=== PATIENT | male | born 1995 | race Caucasian/White ===

== ENCOUNTER 2019-08-08 09:34 | Emergency (ER) | payer MEDICAID, OTHER ==
[~2019-08-08] VITALS: Ht 162.6 cm; Wt 82.0 kg
[2019-08-08] MEDS ORDERED: ONDANSETRON HCL 4MG/2ML INJ IV STA (10:41)
[2019-08-08] MEDS ORDERED: KETOROLAC 30MG/ML VIAL IV STA (10:41)
[2019-08-08] MEDS ORDERED: SODIUM CHLORIDE 0.9% 1,000 ML IV ONE (10:41)
[2019-08-08 12:01] LABS: *AMPHETAMINES SCREEN URINE NEGATIVE (NEGATIVE); *BARBITURATES SCREEN URINE NEGATIVE (NEGATIVE); *BENZODIAZEPINES SCREEN URINE NEGATIVE (NEGATIVE); *COCAINE SCREEN URINE NEGATIVE (NEGATIVE); CANNABINOID URINE SCREEN PRESUMTIVE POSITIVE (NEGATIVE); METHADONE URINE SCREEN NEGATIVE (NEGATIVE); PHENCYCLIDINE URINE SCREEN NEGATIVE (NEGATIVE)
[2019-08-08 12:02] LABS: OPIATES URINE SCREEN NEGATIVE (NEGATIVE)
[2019-08-08 12:13] LABS: BASOPHILS % 0.4 % (0.0-2.0); EOSINOPHILS % 0.8 % (0.0-5.0); HEMATOCRIT. 46.6 % (42.0-52.0); HEMOGLOBIN. 15.6 g/dL (14.0-18.0); LYMPHOCYTES % 11.4 % (20.0-50.0); MEAN CORPUSCULAR HEMOGLOBIN 31.8 pg (28.0-32.0); MEAN CORPUSCULAR VOLUME 95.1 fL (80.0-94.0); MEAN PLATELET VOLUME 7.9 fl (7.4-10.4); MONOCYTES % 8.8 % (2.0-8.0); NEUTROPHILS % 78.6 % (40.0-76.0); PLATELET 248 x1000/uL (130-400); RED CELL DISTRIBUTION WIDTH 13.4 % (11.6-14.6)
[2019-08-08 12:20] LABS: CHLORIDE 104 mEq/L (98-107)
[2019-08-08 12:24] LABS: ETHANOL BLOOD < 10 mg/dL
[2019-08-08 14:36] VITALS: BP 120/65
== END 2019-08-08 14:44 | disposition home or self-care (01) ==
LOC: ER 09:53
DX: R11.0 Nausea (principal); R19.7 Diarrhea, unspecified; E86.0 Dehydration
CPT/HCPCS: 36415; 74176; 80053; 80305; 80320; 83605; 83690; 85025; 87040; 87086; 96361; 96374; 96375; 99284; J1885; J2405; J7030; G0480